=== PATIENT | female | born 1990 | race Caucasian/White ===

== ENCOUNTER 2016-08-11 15:04 | Emergency (ER) | payer OTHER ==
[~2016-08-11] VITALS: Ht 157.5 cm; Wt 78.2 kg
[2016-08-11 15:09] VITALS: TEMP 36.7; Ht 157.5 cm; Wt 78.2 kg
[2016-08-11] MEDS ORDERED: LAMO100T16 PO (16:05)
[2016-08-11] MEDS ORDERED: MULT-1027 PO (16:05)
[2016-08-11] MEDS ORDERED: METFORMIN PO (16:05)
[2016-08-11] MEDS ORDERED: SERT-234 PO (16:05)
[2016-08-11] MEDS ORDERED: NUTR1000 PO (16:05)
[2016-08-11 16:21] LABS: BASO % 0.2 %; BASO ABS # 0.01 K/uL (0-0.2); COMPLETE YES; EOS % 2.9 %; LYMPH % 39.9 %; LYMPH ABS # 2.05 K/uL (1.2-3.4); MEAN CELL VOLUME 90.9 fL (80-100); MEAN CORPUSCULAR HEMOGLOBIN 31.9 pg (25-34); MEAN CORPUSCULAR HGB CONC 35.1 g/dl (32-36); MEAN PLATELET VOLUME 9.7 fL (7.4-10.4); MONO % 5.8 %; NEUT % 51.2 %; PLATELET COUNT 251 K/uL (130-400); RED BLOOD COUNT 4.51 M/uL (4.2-5.4); WHITE BLOOD COUNT 5.14 K/uL (4.8-10.8)
[2016-08-11 16:40] LABS: URINE APPEARANCE TURBID (CLEAR); URINE BILIRUBIN NEG (NEG); URINE COLOR YELLOW; URINE EPITHELIAL CELL AUTO >30 /lpf (0-5); URINE NITRITE NEG (NEG); URINE PH >= 9.0 (4.5-7.5); URINE SPECIFIC GRAVITY 1.019 (1.000-1.030); UROBILINOGEN NEG (NEG)
[2016-08-11 16:41] LABS: MANUAL MICROSCOPIC REQUIRED? NO; REVIEW REQ? NO
--- NOTE | 2016-08-11 16:43 | DIAGNOSTIC IMAGING REPORT ---
TWO VIEW CHEST CLINICAL HISTORY: Generalized abdominal pain. Nausea and vomiting. FINDINGS: PA and lateral chest radiographs are obtained. No prior studies are available for comparison at the time of dictation. The cardiomediastinal silhouette is unremarkable. The lungs and pleural spaces are clear. There is no pneumothorax. The bony thorax appears intact. IMPRESSION: No active disease in the chest. Electronically signed by: Felix Barfield M.D. 08/11/2016 4:41 PM Dictated Date/Time: 08/11/2016 4:41 PM
[2016-08-11 16:57] LABS: ALKALINE PHOSPHATASE 57 U/L (45-117); ALT/SGPT 22 U/L (12-78); AST/SGOT 16 U/L (15-37); BLOOD UREA NITROGEN 8 mg/dl (7-18); BUN/CREATININE RATIO 8.1 (10-20); CALCIUM 9.2 mg/dl (8.5-10.1); CARBON DIOXIDE 33 mmol/L (21-32); CHLORIDE 106 mmol/L (98-107); GLUCOSE 73 mg/dl (70-99); POTASSIUM 4.2 mmol/L (3.5-5.1); SODIUM 144 mmol/L (136-145)
[2016-08-11 17:02] LABS: PREG INTERNAL NEGATIVE QC NEG CLEAR BACKGROUND; PREG INTERNAL POSITIVE QC POS CONTROL LINE
[2016-08-11 17:14] LABS: BENZODIAZEPINE, URINE NEG (NEG); COCAINE,URINE NEG (NEG); PHENCYCLIDINE, URINE NEG (NEG)
[2016-08-11 18:20] VITALS: BP 112/67; PULSE 81
--- NOTE | 2016-08-12 00:15 | EMERGENCY ROOM VISIT NOTE ---
ED Visit Note First contact with patient: 15:11 Chief Complaint: Nausea, vomiting, dizziness and syncope. History of Present Illness: Ms. Garcia is a 25-year-old white female who ambulates into the ED with multiple complaints. Patient was referred to the ED by [facility] for evaluation and care. Patient reports in mid May of this year she was diagnosed with pneumonia by her PCP. She reports no x-rays were performed and she was placed on antibiotics; she does not remember the antibiotics name or the length treatment. She does report that her symptoms resolved after her antibiotic therapy. She reports since finishing her antibiotic therapy she reports she is experiencing constant nausea and approximately 2 times a week she has episodes of vomiting times one a couple evenings during the week. These episodes typically occur proceeding an episode where she moves her head and has a dizziness sensation. She also reports since being on her antibiotics she has been feeling fatigued and lightheaded. She reports that she had 2 episodes of syncope during this time where she passed out in a chair at class. Lastly she reports in April her dose of Lamictal increased from 100 mg once a day to 2 times a day and her Zoloft increased in June from 100 mg a day to 150 mg a day. After these medication changes she had followed up with family doctor and was not having any significant symptoms. She has not been taking any medications with the symptoms prior to arrival at the hospital. She has not had any of these symptoms evaluated before today. She denies fevers, chills, sweats, skin eruptions, skin color changes, recent head trauma, visual changes, hearing changes, difficulty speaking, difficulty swallowing, difficulty walking/coordinating body movements, neck pain, back pain , chest pain, shortness of breath, abdominal pain, diarrhea, rectal bleeding, black/tarry stools, urinary symptoms, hematuria, vaginal bleeding, vaginal discharge, extremity weakness/numbness/tingling, recent weight loss, alcohol and illicit drug use. Review of Systems: As noted above in history of present illness. All body systems were reviewed and found to be negative as noted above. Past Medical History: Depression, pneumonia, food poisoning, status post wisdom teeth extraction. Current Medications: Medications Dose Route/Sig Max Daily Dose Days Date Category Zoloft (Sertraline HCl) 100 Mg Tab 150 Mg PO DAILY 08/11/16 Reported Lamictal (Lamotrigine) 100 Mg Tab 200 Mg PO BID 08/11/16 Reported Multi Vitamin (Multiple Vitamin) 1 Tab Tab 1 Tab PO DAILY 08/11/16 Reported [Metformin] 1 Tab PO BID 08/11/16 Reported Edison Oil (Nutritional Supplements) 1 Cap Cap 1 Cap PO DAILY 08/11/16 Reported Allergies to Medications: Patient denies. Social History: Patient is currently University student; she feels safe in her home environment; she denies tobacco and alcohol use. Physical Examination: Vital Signs: Date Time Temp Pulse Resp B/P Pulse Ox O2 Delivery O2 Flow Rate FiO2 08/11/16 18:20 81 18 112/67 08/11/16 16:24 102 08/11/16 16:20 88 110/69 102 117/65 110 08/11/16 15:09 36.7 101 16 114/77 97 Room Air GENERAL: 25-year-old female in no acute distress, nontoxic-appearing, afebrile and hemodynamically stable. NEUROLOGICAL: Awake, alert and oriented to person, place and time. Answering questions appropriately and following commands. Normal gait. Good hand eye coordination. No focal motor or sensory deficits. Romberg test negative. Pronator drift test negative. Cranial nerves II through XII grossly intact. Good short-term and long-term recall. Normal rapid alternating movements of the hands and feet. SKIN: Warm, dry and pink. No soft tissue eruptions or trauma noted. HEENT: Atraumatic and normocephalic. External ears are nontender. Auditory canals are pink and patent. Tympanic membranes are pearly jenkins with normal light reflex. PERRLA. EOMI without nystagmus. Sclera white and conjunctiva pink. No drainage from naris. Oral cavity moist and pink. Pharynx is nonerythematous or edematous. Speech normal. Airway patent. No lymphadenopathy. Trachea midline. No jugular venous distention. No carotid bruits. BACK: No tenderness over the bony spine. No CVA tenderness. THORAX: Lungs sounds are clear to auscultation and equal bilaterally with symmetrical chest wall. No wheezing, rales or rhonchi. No crepitus, tenderness , subcutaneous air or deformities noted. HEART: Regular rate and rhythm. No gallops, rubs or murmurs are appreciated. ABDOMEN: Flat, soft and nontender. Positive bowel sounds in all quadrants. No guarding, rigidity or organomegaly. EXTREMITIES: Moves all extremities well on command and with purpose. All distal neurovascular statuses are intact and equal bilaterally. No calf tenderness or cords. 5/5 muscle strength in all movements of the upper and lower extremity joints. ED Course: Patient is assessed as noted above. Laboratory Testing: Test 08/11/16 16:05 08/11/16 16:08 Range/Units White Blood Count 5.14 4.8-10.8 K/uL Red Blood Count 4.51 4.2-5.4 M/uL Hemoglobin 14.4 12.0-16.0 g/dL Hematocrit 41.0 37-47 % Mean Corpuscular Volume 90.9 80-100 fL Mean Corpuscular Hemoglobin 31.9 25-34 pg Mean Corpuscular Hemoglobin Concent 35.1 32-36 g/dl Platelet Count 251 130-400 K/uL Mean Platelet Volume 9.7 7.4-10.4 fL Neutrophils (%) (Auto) 51.2 % Lymphocytes (%) (Auto) 39.9 % Monocytes (%) (Auto) 5.8 % Eosinophils (%) (Auto) 2.9 % Basophils (%) (Auto) 0.2 % Neutrophils # (Auto) 2.63 1.4-6.5 K/uL Lymphocytes # (Auto) 2.05 1.2-3.4 K/uL Monocytes # (Auto) 0.30 0.11-0.59 K/uL Eosinophils # (Auto) 0.15 0-0.5 K/uL Basophils # (Auto) 0.01 0-0.2 K/uL RDW Standard Deviation 39.2 36.4-46.3 fL RDW Coefficient of Variation 11.8 11.5-14.5 % Immature Granulocyte % (Auto) 0.0 % Immature Granulocyte # (Auto) 0.00 0.00-0.02 K/uL Sodium Level 144 136-145 mmol/L Potassium Level 4.2 3.5-5.1 mmol/L Chloride Level 106 98-107 mmol/L Carbon Dioxide Level 33 21-32 mmol/L Anion Gap 5.0 3-11 mmol/L Blood Urea Nitrogen 8 7-18 mg/dl Creatinine 1.00 0.60-1.20 mg/dl Est Creatinine Clear Calc Drug Dose 84.7 ml/min Estimated GFR () 92.0 Estimated GFR (Non- 79.4 BUN/Creatinine Ratio 8.1 10-20 Random Glucose 73 70-99 mg/dl Calcium Level 9.2 8.5-10.1 mg/dl Total Bilirubin 0.3 0.2-1 mg/dl Direct Bilirubin < 0.1 0-0.2 mg/dl Aspartate Amino Transf (AST/SGOT) 16 15-37 U/L Alanine Aminotransferase (ALT/SGPT) 22 12-78 U/L Alkaline Phosphatase 57 45-117 U/L Total Protein 7.1 6.4-8.2 gm/dl Albumin 3.9 3.4-5.0 gm/dl Thyroid Stimulating Hormone (TSH) 1.410 0.300-4.500 uIu/ml Human Chorionic Gonadotropin, Qual NEG NEG Monoscreen NEG NEG Urine Color YELLOW Urine Appearance TURBID CLEAR Urine pH >= 9.0 4.5-7.5 Urine Specific [place] 1.019 1.000-1.030 Urine Protein NEG NEG Urine Glucose (UA) NEG NEG Urine Ketones NEG NEG Urine Occult Blood NEG NEG Urine Nitrite NEG NEG Urine Bilirubin NEG NEG Urine Urobilinogen NEG NEG Urine Leukocyte Esterase SMALL NEG Urine WBC (Auto) 5-10 0-5 /hpf Urine RBC (Auto) 0-4 0-4 /hpf Urine Hyaline Casts (Auto) 5-10 0-5 /lpf Urine Epithelial Cells (Auto) >30 0-5 /lpf Urine Bacteria (Auto) 3+ NEG Urine Opiates Screen NEG NEG Urine Methadone, Qualitative NEG NEG Urine Barbiturates NEG NEG Urine Phencyclidine (PCP) Level NEG NEG Ur Amphetamine/Methamphetamine NEG NEG MDMA (Ecstasy) Screen NEG NEG Urine Benzodiazepines Screen NEG NEG Urine Cocaine Metabolite NEG NEG Urine Marijuana (THC) NEG NEG Chest X-Rays: Were read by myself and the radiologist showing no acute infiltrates, effusions or pneumothorax. Normal heart silhouette and bony anatomy. EKG: Was read by myself and reviewed with Dr. Harrell; shows normal sinus rhythm with a shortened IN interval. Ventricular rate 79 bpm. Normal axis. No acute ST changes indicating ischemia, injury or infarction. No previous to compare. Patient was reassessed multiple times during her stay in the emergency department. Patient's case was reviewed with Dr. Harrell we agreed on diagnostic approach, treatment, disposition and plan.; Patient was educated about tonight's findings and instructed on her treatment plan; she verbalizes understanding and agreement with this plan. Clinical Impression: Nausea. Fatigue. Dizziness. Decision-Making: Initially my differential diagnosis I considered anemia, thyroid dysfunction, electrolyte abnormality, metabolic disturbance, arrhythmia , medication reaction and other causes. Disposition: Patient discharged home in stable condition; prior to departure she was reassessed and subjectively reported she was feeling slightly better. Plan: Patient was encouraged to continue her current medications as prescribed. Patient was encouraged to stay well-hydrated with increased clear fluids. Patient was encouraged to keep his diarrhea of her symptoms and her life. Patient was encouraged to follow-up with family physician for recheck. Patient was encouraged return the ED for worsening/uncontrolled symptoms, uncontrolled vomiting, any additional episodes of passing out, fevers or any new /concerning symptoms.
== END 2016-08-11 18:20 | disposition home or self-care (01) ==
LOC: C.EDB 15:06
DX: R11.0 Nausea (principal); R53.83 Other fatigue; R42 Dizziness and giddiness; F32.9 Major depressive disorder, single episode, unspecified; Z79.84 Long term (current) use of oral hypoglycemic drugs; Z79.899 Other long term (current) drug therapy; Z87.01 Personal history of pneumonia (recurrent)